=== PATIENT | female | born 1950 | race Caucasian/White ===

== ENCOUNTER 2016-10-18 08:30 | Emergency (ER) | payer MEDICAID, OTHER ==
[~2016-10-18] VITALS: Ht 157.5 cm; Wt 68.4 kg
[~2016-10-18 08:30] MED LIST: DOCU-144 PO; HYDR-3498 PO; ONDA4TAB35 PO
[2016-10-18 08:32] VITALS: Ht 157.5 cm; Wt 68.4 kg
[2016-10-18] MEDS ORDERED: KETOROLAC 30 MG INJ IM STA (09:58)
--- NOTE | 2016-10-18 10:55 | ERD ---
ER Documentation Chief Complaint Date/Time DATE: 10/18/16 TIME: 10:52 Chief Complaint RIGHT HIP AND KNEE PAIN SINCE AUGUST HPI Is a 66 year-old female who presents women's department today complaining of pain in her hip and pain in her knees while swelling in her knee. Patient states that her leg felt weak when she walks. States this is been ongoing for the past 2 months. States she just moved here from [place] does not have a primary care physician. Denies any fevers or chills or erythema. ROS All systems reviewed and are negative except as per history of present illness. Medications Home Meds Active Scripts Naproxen* (Naprosyn*) 500 Mg Tablet, 500 MG PO BID Y for PAIN AND/OR INFLAMMATION, #30 TAB Prov:IBIS TERRY PA-C 10/18/16 Tramadol HCl (Tramadol HCl) 50 Mg Tablet, 50 MG PO Q4 Y for PAIN, #20 TAB Prov:IBIS TERRY PA-C 10/18/16 Ondansetron Hcl* (Zofran* ODT) 4 mg -ODT Tab.disper, 4 MG PO Q4H Y for NAUSEA AND OR VOMITING, #20 TAB Prov:RAMAKRISHNA RODRIGUEZ 03/11/16 Docusate Sodium* (Colace*) 100 Mg Capsule, 100 MG PO TID, #20 CAP Prov:RAMAKRISHNA RODRIGUEZ 03/11/16 Hydrocodone Bit-Acetaminophen* ([place]*) 5-325 Mg Tab, 1 TAB PO Q6 Y for PAIN, # 12 TAB Prov:RAMAKRISHNA RODRIGUEZ 03/11/16 Allergies Allergies: Coded Allergies: No Known Allergy (Unverified , 03/11/16) PMhx/Soc History of Surgery: Yes (appendectomy) Anesthesia Reaction: No Hx Neurological Disorder: No Hx Respiratory Disorders: No Hx Cardiac Disorders: No Hx Psychiatric Problems: No Hx Miscellaneous Medical Probl: No Hx Substance Use: No Hx Tobacco Use: No Physical Exam Vitals Vital Signs Date Time Temp Pulse Resp B/P Pulse Ox O2 Delivery O2 Flow Rate FiO2 10/18/16 08:32 98.1 74 20 136/63 99 Physical Exam Const: No acute distress Head: Atraumatic Eyes: Normal Conjunctiva ENT: Normal External Ears, Nose and Mouth. Neck: Full range of motion..~ No meningismus. Resp: Clear to auscultation bilaterally Cardio: Regular rate and rhythm, no murmurs Abd: Soft, non tender, non distended. Normal bowel sounds Skin: No petechiae or rashes Back: No midline or flank tenderness MSK: Right hip with no obvious deformity. No effusion. No ecchymosis. Right knee with mild anteriorly. No obvious deformity. Full Active range of motion. Pulses 2+ per distal neurovascular intact. Neur: Awake and alert Psych: Normal Mood and Affect Results 24 hrs Current Medications Medications (Trade) Dose Ordered Sig/Darin Route PRN Reason Start Time Stop Time Status Last Admin Dose Admin Ketorolac Tromethamine (Toradol) 30 mg ONCE STAT IM 10/18/16 09:58 10/18/16 10:00 DC 10/18/16 10:03 Patient: JENI PHILLIPS : 1950 Age: 66 Sex: F MR #: [id number] DOS: 10/18/16 0000 Ordering MD: IBIS TERRY PA-C Location: [facility] Room/Bed: PROCEDURE: XR right hip. CLINICAL INDICATION: Hip pain TECHNIQUE: 2 views performed COMPARISON: No prior studies are available for comparison. FINDINGS: There is mild right hip osteoarthrosis. This is associated with joint space narrowing, subchondral sclerosis and osteophytosis. There is normal mineralization. No fractures or osseous lesions are identified. The soft tissues are unremarkable. IMPRESSION: Mild right hip osteoarthrosis. RPTAT: HGDB .Tyler Alvarado MD, Date Time Electronically viewed and signed by .Tyler Alvarado MD, MD on 10/18/2016 11:17 .B/ CC: IBIS TERRY PA-C DIAGNOSTIC IMAGING REPORT Patient: JENI PHILLIPS : 1950 Age: 66 Sex: F MR #: [id number] DOS: 10/18/16 0000 Ordering MD: IBIS TERRY PA-C Location: [facility] Room/Bed: PROCEDURE: XR right knee. CLINICAL INDICATION: Knee pain TECHNIQUE: AP, oblique and lateral views are available for review. COMPARISON: None available FINDINGS: There is moderate osteoarthrosis involving the medial tibial femoral compartment and mild to moderate osteoarthrosis involving the patellofemoral compartment. This is associated with joint space narrowing, subchondral sclerosis and osteophytosis. There is a small suprapatellar joint effusion There is otherwise normal mineralization, architecture and alignment. No fractures are identified. No osseous lesions are identified. The soft tissues are unremarkable. IMPRESSION: Moderate osteoarthrosis involving the medial tibial femoral compartment and mild to moderate osteoarthrosis involving the patellofemoral compartment. Small suprapatellar joint effusion RPTAT: HGDB .Tyler Alvarado MD, MD Date Time Electronically viewed and signed by .Tyler Alvarado MD, MD on 10/18/2016 11:16 .B/ CC: IBIS TERRY PA-C Procedures/MDM This 66-year-old female who presents emergency department today complaining of right hip and right knee pain for the past 2 months. Patient does have some localized swelling in her right knee joint given the length of duration of patient's age and did obtain images of the patient's right hip and knee Per the radiology report images of the right hip show mild right hip osteoarthrosis. There is joint space narrowing, subchondral sclerosis and osteophytosis. There is no acute fracture or dislocation. Images of the right hip show moderate osteoarthrosis involving the medial tibiofemoral compartment in mild to moderate osteoporosis involving the patellofemoral compartment. There is a small suprapatellar joint effusion. There is associated joint space narrowing, subchondral sclerosis and osteophytosis. There is no acute fracture or dislocation. Patient's symptoms at this time consistent with arthritis. I've explained this to the patient. Patient is afebrile and otherwise well-appearing. Low suspicion for septic joint or gout. There is no erythema or warmth. She was given a Toradol injection here in the emergency department. I'll give the patient prescription for tramadol and Naprosyn for home. Patient was also given an abdirahman wrap. She declined crutches here in the emergency department if given her a list of resources as well as referral information for orthopedics At this time the patient is stable for discharge and outpatient management. Patient should follow up with their PCP in the next 1-2 days. They may return to the emergency department sooner for any persistent or worsening of symptoms. Patient understood and agreed with the plan. Departure Diagnosis: Primary Impression: Knee pain Laterality: right Chronicity: chronic Qualified Code: M25.561 - Chronic pain of right knee Additional Impression: Hip pain Laterality: right Qualified Code: M25.551 - Pain of right hip joint Condition: Fair IBIS TERRY PA-C Oct 18, 2016 10:55
--- NOTE | 2016-10-18 11:17 | RADRPT ---
PROCEDURE: XR right knee. CLINICAL INDICATION: Knee pain TECHNIQUE: AP, oblique and lateral views are available for review. COMPARISON: None available FINDINGS: There is moderate osteoarthrosis involving the medial tibial femoral compartment and mild to moderat e osteoarthrosis involving the patellofemoral compartment. This is associated with joint space narro wing, subchondral sclerosis and osteophytosis. There is a small suprapatellar joint effusion There is otherwise normal mineralization, architecture and alignment. No fractures are identified. No osseous lesions are identified. The soft tissues are unremarkable. IMPRESSION: Moderate osteoarthrosis involving the medial tibial femoral compartment and mild to moderate osteoar throsis involving the patellofemoral compartment. Small suprapatellar joint effusion RPTAT: HGDB .Tyler Alvarado MD, Date Time Electronically viewed and signed by .Tyler Alvarado MD, on 10/18/2016 11:16 .B/
--- NOTE | 2016-10-18 11:18 | RADRPT ---
PROCEDURE: XR right hip. CLINICAL INDICATION: Hip pain TECHNIQUE: 2 views performed COMPARISON: No prior studies are available for comparison. FINDINGS: There is mild right hip osteoarthrosis. This is associated with joint space narrowing, subchondral s clerosis and osteophytosis. There is normal mineralization. No fractures or osseous lesions are id entified. The soft tissues are unremarkable. IMPRESSION: Mild right hip osteoarthrosis. RPTAT: HGDB .Tyler Alvarado MD, MD Date Time Electronically viewed and signed by .Tyler Alvarado MD, on 10/18/2016 11:17 .B/
[2016-10-18] MEDS ORDERED: NAPR-260 PO (11:27)
[2016-10-18] MEDS ORDERED: TRAM50TA2 PO (11:27)
== END 2016-10-18 11:51 | disposition home or self-care (01) ==
LOC: FTE 08:30
DX: M25.561 Pain in right knee (principal); M25.551 Pain in right hip
CPT/HCPCS: 73510; 73562; 96372; J1885; Z7502

== ENCOUNTER 2016-11-16 04:51 | Emergency (ER) | payer MEDICAID, OTHER ==
[~2016-11-16] VITALS: Ht 152.4 cm; Wt 65.0 kg
[~2016-11-16 04:51] MED LIST changes: +NAPR-260 PO; +TRAM50TA2 PO
[2016-11-16 04:58] VITALS: Ht 152.4 cm; Wt 65.0 kg
[2016-11-16] MEDS ORDERED: ONDANSETRON 4 MG INJ IV STA (05:21)
[2016-11-16] MEDS ORDERED: ONDANSETRON 4 MG INJ IV ONE (05:21)
[2016-11-16] MEDS ORDERED: morphine 2 MG INJ IV ONE ×2 (05:30)
[2016-11-16] MEDS ORDERED: HYDROmorphONE 1 MG/ML SYG IV ONE (06:12)
[2016-11-16] MEDS ORDERED: PROPOFOL 200 MG INJ IV STA (06:38)
[2016-11-16] MEDS ORDERED: FENTAnyl 50 MCG/ML VIAL IV STA (06:38)
--- NOTE | 2016-11-16 07:38 | RADRPT ---
PROCEDURE: XR Shoulder. CLINICAL INDICATION: Right shoulder dislocation. TECHNIQUE: Two-view of the right shoulder are available for review. COMPARISON: Right shoulder x-ray dated 03/11/2016 FINDINGS: Complete anterior dislocation of the right shoulder is seen. No definite underlying fracture is seen . The appearances are identical to that seen on the prior study dated 03/11/2016. Large subacromia l spur arising from the acromion is identified. No definite or obvious bony fracture is seen. IMPRESSION: 1. Complete right shoulder dislocation, similar to the prior study dated March 2016. 2. No obvious or definite underlying bony fracture is identified at this time. RPTAT: HMJB .Otilio Roger MD, Date Time Electronically viewed and signed by .Otilio Roger MD, on 11/16/2016 07:38 .B/
--- NOTE | 2016-11-16 07:42 | ERD ---
ER Documentation Chief Complaint Date/Time DATE: 11/16/16 TIME: 07:29 Chief Complaint R shoulder dislocated approx 20 mins ago HPI 66-year-old female with a history of hyperlipidemia presenting with right shoulder pain. She states she has had 5 episodes of shoulder dislocations in the past requiring reduction with conscious sedation. She states she was turning around in bed and moving a pillow when her shoulder popped out of place. She denies any falls. She complains of severe 10 out of 10 pain in the right shoulder radiating down the right side of her arm. She denies any numbness or tingling. She is unable to move the arm secondary to pain. It is worse with any movement, not improved with anything including IV pain medications. She is otherwise asymptomatic. ROS All systems reviewed and are negative except as per history of present illness. Medications Home Meds Active Scripts Naproxen* (Naprosyn*) 500 Mg Tablet, 500 MG PO BID Y for PAIN AND/OR INFLAMMATION, #30 TAB Prov:IBIS TERRY PA-C 10/18/16 Tramadol HCl (Tramadol HCl) 50 Mg Tablet, 50 MG PO Q4 Y for PAIN, #20 TAB Prov:IBIS TERRY PA-C 10/18/16 Ondansetron Hcl* (Zofran* ODT) 4 mg -ODT Tab.disper, 4 MG PO Q4H Y for NAUSEA AND OR VOMITING, #20 TAB Prov:RAMAKRISHNA RODRIGUEZ 03/11/16 Docusate Sodium* (Colace*) 100 Mg Capsule, 100 MG PO TID, #20 CAP Prov:RAMAKRISHNA RODRIGUEZ 03/11/16 Hydrocodone Bit-Acetaminophen* ([place]*) 5-325 Mg Tab, 1 TAB PO Q6 Y for PAIN, # 12 TAB Prov:RAMAKRISHNA RODRIGUEZ 03/11/16 Allergies Allergies: Coded Allergies: No Known Allergy (Unverified , 03/11/16) PMhx/Soc History of Surgery: Yes (appendectomy) Anesthesia Reaction: No Hx Neurological Disorder: No Hx Respiratory Disorders: No Hx Cardiac Disorders: No Hx Psychiatric Problems: No Hx Miscellaneous Medical Probl: Yes (knee problems, frequent shoulder dislocations) Hx Substance Use: No Hx Tobacco Use: No Smoking Status: Never smoker FmHx Family History: No diabetes Physical Exam Vitals Vital Signs Date Time Temp Pulse Resp B/P Pulse Ox O2 Delivery O2 Flow Rate FiO2 11/16/16 07:00 100 6.0 11/16/16 06:36 75 20 175/81 99 Room Air 11/16/16 04:58 96.8 77 26 148/67 94 Physical Exam Const: Moaning in distress secondary to pain, nontoxic Head: Atraumatic Eyes: Normal Conjunctiva ENT: Normal External Ears, Nose and Mouth. Oropharynx clear Neck: Full range of motion. No meningismus. Resp: Clear to auscultation bilaterally Cardio: Regular rate and rhythm, no murmurs Abd: Soft, non tender, non distended. Normal bowel sounds Skin: No petechiae or rashes Back: No midline or flank tenderness Ext: No cyanosis, or edema. Upper Extremity - bilateral: Skin: No laceration, or evidence of external trauma. Positive right shoulder sulcus sign. Consistent with dislocation. Compartments: Soft Motor: Full active range of motion elbow/wrist/hand. Very limited range of motion of the right shoulder secondary to pain. Sensation: Intact shoulder/pinky/middle finger/thumb web space Bones: Nontender humerus/elbow/forearm/wrist/hand Snuffbox: Nontender Joints: No effusion Pulses/Perfusion: 2+ radial, Capillary refill < 2 seconds Neur: Awake and alert Results 24 hrs Current Medications Medications (Trade) Dose Ordered Sig/Darin Route PRN Reason Start Time Stop Time Status Last Admin Dose Admin Morphine Sulfate (morphine) 2 mg ONCE ONCE IV 11/16/16 05:30 11/16/16 05:31 DC 11/16/16 05:39 Ondansetron HCl (Zofran Inj) 4 mg ONCE STAT IV 11/16/16 05:21 11/16/16 05:23 DC 11/16/16 05:40 Morphine Sulfate (morphine) 2 mg ONCE ONCE IV 11/16/16 05:30 11/16/16 05:31 DC 11/16/16 05:45 Ondansetron HCl (Zofran Inj) 4 mg ONCE ONCE IV 11/16/16 05:21 11/16/16 05:30 DC Hydromorphone HCl (Dilaudid) 1 mg ONCE ONCE IV 11/16/16 06:12 11/16/16 06:13 DC 11/16/16 06:14 Fentanyl (Sublimaze) 50 mcg ONCE STAT IV 11/16/16 06:38 11/16/16 06:41 DC Propofol (Diprivan) 70 mg ONCE STAT IV 11/16/16 06:38 11/16/16 06:41 DC Procedures/MDM X-ray Shoulder 3V Interpreted by me: Bones: No fracture Joints: Papa-inferior right shoulder dislocation Foreign body: None Procedural Sedation: Pre-assessment performed. See preceding complete history and physical for details. Time out performed. See sedation documentation for details. Medication(s): Fentanyl, propofol Complications: No apneic events, one episode of hypoxia to 92%. Improved with oxygen by facemask and jaw thrust Recovered without incident. Greater than 15 minutes of face to face time included in sedation and recovery. Shoulder Reduction by me: Anesthesia: Procedural sedation Location: Right shoulder Technique: External rotation Results: Religious of normal anatomic positioning Compl: Neurovascularly intact post procedure. Shoulder immobilizer assessment: Neurovascularly intact post immobilizer placement with good fit. Post-reduction X-ray Shoulder 2V Interpreted by me: Bones: No acute fractures Joints: Relocation of previously noted dislocation Foreign body: None I discussed with the patient and her son the importance of her seeing an orthopedic surgeon as soon as possible to discuss repair of the right shoulder as this is likely to happen multiple times in the future. They voiced understanding and will call the primary care doctor tomorrow for follow-up. Ibuprofen was recommended for pain. She was neurovascularly intact and mentating normally prior to discharge. Departure Diagnosis: Primary Impression: Shoulder dislocation, recurrent Laterality: right Qualified Code: M24.411 - Shoulder dislocation, recurrent , right Condition: Stable JOSE ALBERTO HERNANDEZ MD Nov 16, 2016 07:41
[2016-11-16] MEDS ORDERED: IBUP400T22 PO (07:59)
[2016-11-16 08:30] VITALS: TEMP 98
--- NOTE | 2016-11-16 08:46 | RADRPT ---
AMENDMENT: 11/16/2016 10:06:55 AM Williams Fernandes M.D Correction: Alignment is intact. This is incorrectly stated in both the findings and impression. PROCEDURE: XR Shoulder. CLINICAL INDICATION: Post reduction. Right shoulder pain. TECHNIQUE: Two views of the right shoulder are available for review. COMPARISON: None available FINDINGS: There has been interval reduction of right anterior inferior glenohumeral dislocation. Alignment is not intact. There is no acute fracture identified on the 2 views provided. The glenohumeral joint is within normal limits. The acromioclavicular joint is intact. The visualized portions of the righ t chest wall are grossly unremarkable. The soft tissues are within normal limits. IMPRESSION: 1. Interval reduction of right anterior inferior dislocation. Alignment is not intact. . RPTAT: KK .Williams Fernandes MD, Date Time Electronically viewed and signed by .Williams Fernandes MD, on 11/16/2016 10:07 .B/
[2016-11-16 09:15] VITALS: BP 115/56; PULSE 74; RESP 18
[2016-11-16] MEDS ORDERED: ONDANSETRON (ODT) 4 MG TAB ODT STA (09:57)
[2016-11-16] MEDS ORDERED: MECLIZINE 12.5 MG TAB PO ONE (10:00)
== END 2016-11-16 10:20 | disposition home or self-care (01) ==
LOC: E/R 04:51
DX: M24.411 Recurrent dislocation, right shoulder (principal)
CPT/HCPCS: 23650; 73030; J1170; J2270; J2405; J3010; Z7610; 96374; 96375

== ENCOUNTER 2016-11-30 10:59 | Emergency (ER) | payer OTHER ==
[~2016-11-30] VITALS: Wt 64.0 kg
[~2016-11-30 10:59] MED LIST changes: +IBUP400T22 PO
[2016-11-30] MEDS ORDERED: ONDA4TAB11 PO (12:44)
[2016-11-30] MEDS ORDERED: PRED20TA PO (12:44)
[2016-11-30] MEDS ORDERED: HYDR-906 PO (12:44)
[2016-11-30] MEDS ORDERED: OMEP20CA16 PO (12:44)
[2016-11-30] MEDS ORDERED: RANI150T9 PO (12:44)
[2016-11-30] MEDS ORDERED: NAPR-260 PO (12:44)
--- NOTE | 2016-11-30 12:56 | ERD ---
ER Documentation Chief Complaint Date/Time DATE: 11/30/16 TIME: 12:47 Chief Complaint right shoulder and right knee pain needs pain meds. no recent trauma noted. HPI 66-year-old female with a history of arthritis presents to the emergency department complaining of bilateral shoulder pain right greater than left, low back pain, bilateral hip pain as well as bilateral knee pain. Patient states her pain began 9 days ago and has gradually worsened since that time. Patient currently rates her pain as a intermittent throbbing 6 out of 10, worse with movement. Patient states she is having trouble moving her right shoulder due to increased pain. Patient notes that she was lifting heavy objects overhead with her right shoulder 2 weeks ago. Patient denies any fall or trauma. Patient states this pain has occurred in the past and similar symptoms were experienced. Patient states that she has attempted to treat her pain with ibuprofen at home and reports moderate improvement however she does note some upset stomach and nausea after taking the ibuprofen. Patient denies any fever, chills, vomiting, bowel or bladder incontinence, dysuria, weakness, numbness or tingling. ROS All systems reviewed and are negative except as per history of present illness. Medications Home Meds Active Scripts Hydrocodone/Acetaminophen ([place] 5-325 Tablet) 1 Each Tablet, 1 EACH PO QHS for 7 Days, TAB Prov:RABIA SENRA PA-C 11/30/16 Ondansetron (Zofran Odt) 4 Mg Tab.rapdis, 4 MG PO BID for 1 Day Prov:RBAIA SERNA PA-C 11/30/16 Ranitidine Hcl* (Zantac*) 150 Mg Tablet, 150 MG PO HS, #30 TAB Prov:RABIA SERNA PA-C 11/30/16 Omeprazole* (Omeprazole*) 20 Mg Capsule.dr, 20 MG PO DAILY, #30 CAP Prov:RABIA SERNA PA-C 11/30/16 Naproxen* (Naprosyn*) 500 Mg Tablet, 500 MG PO BID Y for PAIN AND/OR INFLAMMATION, #30 TAB Prov:RABIA SERNA PA-C 11/30/16 Prednisone* (Prednisone*) 20 Mg Tab, 40 MG PO DAILY for 4 Days, TAB Prov:RABIA SERNA PA-C 11/30/16 Ibuprofen* (Motrin*) 400 Mg Tab, 400 MG PO Q6H Y for PAIN AND OR ELEVATED TEMP, #30 TAB Prov:JOSE ALBERTO HERNANDEZ MD 11/16/16 Naproxen* (Naprosyn*) 500 Mg Tablet, 500 MG PO BID Y for PAIN AND/OR INFLAMMATION, #30 TAB Prov:IBIS TERRYC 10/18/16 Tramadol HCl (Tramadol HCl) 50 Mg Tablet, 50 MG PO Q4 Y for PAIN, #20 TAB Prov:IBIS TERRY-C 10/18/16 Ondansetron Hcl* (Zofran* ODT) 4 mg -ODT Tab.disper, 4 MG PO Q4H Y for NAUSEA AND OR VOMITING, #20 TAB Prov:RAMAKRISHNA RODRIGUEZ 03/11/16 Docusate Sodium* (Colace*) 100 Mg Capsule, 100 MG PO TID, #20 CAP Prov:RAMAKRISHNA RODRIGUEZ 03/11/16 Hydrocodone Bit-Acetaminophen* ([place]*) 5-325 Mg Tab, 1 TAB PO Q6 Y for PAIN, # 12 TAB Prov:RAMAKRISHNA RODRIGUEZ 03/11/16 Allergies Allergies: Coded Allergies: No Known Allergy (Unverified , 03/11/16) PMhx/Soc History of Surgery: Yes (appendectomy) Anesthesia Reaction: No Hx Neurological Disorder: No Hx Respiratory Disorders: No Hx Cardiac Disorders: No Hx Psychiatric Problems: No Hx Miscellaneous Medical Probl: Yes (knee problems, frequent shoulder dislocations) Hx Substance Use: No Hx Tobacco Use: No Physical Exam Vitals Vital Signs Date Time Temp Pulse Resp B/P Pulse Ox O2 Delivery O2 Flow Rate FiO2 11/30/16 11:06 98.8 64 20 136/65 99 Physical Exam Const: Well-developed, well-nourished, in no acute distress Head: Atraumatic Eyes: Normal Conjunctiva ENT: Normal External Ears, Nose and Mouth. Neck: Full range of motion at C-spine, no midline tenderness Resp: Clear to auscultation bilaterally Cardio: Regular rate and rhythm, no murmurs Abd: Soft, non tender, non distended. Normal bowel sounds Skin: No petechiae or rashes Back: No midline or flank tenderness. Full flexion and range of motion at hip joint. Negative straight leg test. Ext: Mild tenderness to palpation of muscles surrounding the right shoulder joint. Limited range of motion of right shoulder joint due to pain however I am able to perform full range of motion passively. Distal upper extremity sensation intact. Radial pulses 2+ equal and bilateral. Distal upper extremity skin warm and well perfused. Radial median and ulnar motor function intact bilaterally. Pedal pulses 2+ equal and bilateral. Distal lower extremity sensation intact bilaterally patient has full range of motion at knee and ankle joints and equal strength at knee joint bilaterally. Patient able to ambulate well. no cyanosis, or edema Neur: Awake and alert Psych: Normal Mood and Affect Results 24 hrs Current Medications Medications (Trade) Dose Ordered Sig/Darin Route PRN Reason Start Time Stop Time Status Last Admin Dose Admin Prednisone (Prednisone) 60 mg ONCE ONCE PO 11/30/16 13:00 11/30/16 13:01 DC 11/30/16 13:13 Procedures/MDM Patient presents with multiple joint pain which has gradually worsened over the past 9 days. Patient states similar symptoms for prior episodes and denies any trauma. Patient's clinical picture consistent with multiple joint pain, gastritis due to NSAID use and shoulder strain. The patient's low back pain is unlikely related to serious etiology. The patient exhibits no clinical signs or symptoms and has no history or risk factors to suggest cauda equina, cord compression, epidural abscess, epidural hematoma, acute aortic aneurysm or dissection. Patient received 1 dose of prednisone while in the emergency department today. Patient to begin omeprazole and ranitidine to control symptoms of gastritis related to NSAID use. Patient placed in shoulder sling. I had a discussion with the patient regarding the recommendation to follow-up with primary care so that she may obtain a referral to an plant technical specialist for better management of her ongoing arthritis. Based on patient's history of present illness and physical examination the decision was made to discharge. The patient was re-evaluated after ED treatment and stabilizing measures, and symptoms have improved. There is no evidence of life threatening injuries or illnesses at this time. On re-examination, patient resting in no distress, stable vital signs, reports feeling better and safe for discharge with outpatient follow up with PMD in 1-2 days. Patient given return precautions. Departure Diagnosis: Primary Impression: Shoulder strain Encounter type: initial encounter Laterality: right Qualified Code: S46.911A - Shoulder strain, right, initial encounter Additional Impressions: Arthritis Pain, joint, multiple sites Condition: Stable Patient Instructions: Osteoarthritis: Coping with Pain, Shoulder Sprain Additional Instructions: Call your primary care doctor TOMORROW for an appointment during the next 1-2 days.See the doctor sooner or return here if your condition worsens before your appointment time. RABIA SERNA PA-C Nov 30, 2016 12:56 RABIA SERNA PA-C Nov 30, 2016 12:56
[2016-11-30] MEDS ORDERED: predniSONE 20 MG TAB PO ONE (13:00)
== END 2016-11-30 13:14 | disposition home or self-care (01) ==
LOC: FTE 10:59
DX: S46.911A Strain of unspecified muscle, fascia and tendon at shoulder and upper arm level, right arm, initial encounter (principal); M19.90 Unspecified osteoarthritis, unspecified site; R11.0 Nausea; X58.XXXA Exposure to other specified factors, initial encounter; Y92.9 Unspecified place or not applicable
CPT/HCPCS: 99284; J7512